=== PATIENT | male | born 1955 | race Caucasian/White ===

== ENCOUNTER 2016-12-17 11:58 | Inpatient (IN) | payer OTHER ==
[~2016-12-17] VITALS: Ht 185.4 cm; Wt 110.1 kg
[~2016-12-17 11:58] MED LIST: ALBU2.5V NEB; ALBU2.5V NPPB; ALLO100T30 PO; ASPI-650 PO; ATOR40TA PO; ATOR40TA78 PO; AZIT250T PO; CAPT12.52 PO; CEFT1FRO2 IVPB; DOCU-30 PO; FURO-92 PO; FURO-93 PO; FURO20TA3 PO; FURO40TA6 PO; HEPA5000 SQ; HYDR-3138 PO; INSU100C5 SQ-INSULIN; INSU100I29 SQ; INSU100V10 SQ; INSU100V5 SC; INSU100V8 SQ; LACT10SO5 PO; LACT20SO2 PO; LISI2.5T PO; LISI5TAB7 PO; METO25TA35 PO; METO25TA91 PO; MORP15TA PO; NAPR500T3 PO; OMEP-110 PO; ONDA4SOL2 IVPush; ONDA4TAB13 SL; OXYC10TA6 PO; OXYC1TAB7 PO; OXYC1TAB9 PO; OXYC5TAB3 PO; POTA10TA PO; POTA20TA91 PO; POTA25TA4 PO; PRED1TAB PO; PRED20TA PO; PRED50TA PO; PREG75CA PO; SOFO400T PO; SPIR25TA PO; TRIA1CAP3 PO; [UNRECOGNIZED DRUG - CODE] PO
[2016-12-17 13:32] LABS: ASPARTATE AMINO TRANSFERASE 11 U/L (15-37); BLOOD UREA NITROGEN 37 mg/dL (7-18)
[2016-12-17 13:37] LABS: IS PT STATUS REG ER OR PRE ER? YES
[2016-12-17] MEDS ORDERED: GUAIFENESIN/DM 200-20MG, 10ML UDC PO PRN (15:00)
[2016-12-17] MEDS ORDERED: ONDANSETRON ODT 4 MG PO PRN (15:00)
[2016-12-17] MEDS ORDERED: DEXTROSE 4 GM TAB.CHEW PO PRN (15:00)
[2016-12-17] MEDS ORDERED: ACETAMINOPHEN 325 MG TABLET PO PRN (15:00)
[2016-12-17] MEDS ORDERED: DEXTROSE 50%, 50ML SYRINGE IVPush PRN (15:00)
[2016-12-17] MEDS ORDERED: GLUCAGON 1 MG IM PRN (15:00)
[2016-12-17] MEDS ORDERED: ENALAPRILAT 1.25 MG/ML, 2ML IVPush PRN (15:00)
[2016-12-17] MEDS ORDERED: POLYETHYLENE GLYCOL 17 GM PACKET PO PRN (15:00)
[2016-12-17] MEDS ORDERED: ACETAMINOPHEN 325 MG TABLET ONE (15:13)
[2016-12-17] MEDS ORDERED: OXYC5CAP4 PO (15:18)
[2016-12-17] MEDS ORDERED: ALBUTEROL/IPRATROPIUM 2.5MG/0.5MG, 3 ML ONE (15:37)
[2016-12-17] MEDS: ALBUTEROL/IPRATROPIUM 2.5MG/0.5MG, 3 ML NPPB SCH (15:45)
[2016-12-17 15:50] LABS: IS PT STATUS REG ER OR PRE ER? YES
[2016-12-17] MEDS ORDERED: OXYcodone IR 5MG TABLET ONE (15:56)
[2016-12-17] MEDS: OXYcodone IR 5MG TABLET PO PRN (15:57)
[2016-12-17] MEDS ORDERED: INSULIN REGULAR 100 UNITS/ML, 3ML VIAL SQ-INSULIN SCH (16:00)
[2016-12-17] MEDS ORDERED: OXYcodone 5 MG/5 ML ORAL.SOL UDC PO PRN (16:00)
[2016-12-17] MEDS ORDERED: SACU1TAB PO ×2 (16:08→18:38)
[2016-12-17] MEDS ORDERED: FUROSEMIDE 40 MG TABLET PO ONE (16:30)
[2016-12-17] MEDS: INSULIN ASPART 100 UNITS/ML, PEN SQ-INSULIN SCH ×2 (18:03→21:29)
[2016-12-17] MEDS: HEPARIN 5,000 UNITS/ML, 1ML SQ SCH (18:04)
[2016-12-17 18:06] VITALS: BP 131/86
[2016-12-17 20:24] VITALS: BP 113/82
[2016-12-17] MEDS: ATORVASTATIN 40 MG TABLET PO SCH (21:28)
[2016-12-17] MEDS: METOPROLOL TARTRATE 25 MG TABLET PO SCH (21:29)
[2016-12-17] MEDS: SODIUM CHLORIDE FLUSH 10ML SYR IVF SCH (21:30)
[2016-12-17 22:45] LABS: IS PT STATUS REG ER OR PRE ER? NO
[2016-12-18] MEDS: morphine SULFATE 10 MG/ML, 1ML IVPush PRN ×4 (00:19→13:54)
[2016-12-18] MEDS: HEPARIN 5,000 UNITS/ML, 1ML SQ SCH ×4 (01:01→23:40)
[2016-12-18 02:29] VITALS: BP 118/81
[2016-12-18] MEDS: ASPIRIN 325 MG TABLET EC PO SCH (05:21)
[2016-12-18 06:06] LABS: HEMOGLOBIN 13.7 g/dL (13.7-18.0)
[2016-12-18 06:18] LABS: BLOOD UREA NITROGEN 35 mg/dL (7-18)
[2016-12-18] MEDS: ALBUTEROL/IPRATROPIUM 2.5MG/0.5MG, 3 ML NPPB SCH ×4 (06:35→20:05)
[2016-12-18 08:16] VITALS: BP 121/79
[2016-12-18] MEDS: SENNA/DOCUSATE TABLET PO SCH (09:00)
[2016-12-18] MEDS: VALSARTAN PO SCH (09:00)
[2016-12-18] MEDS: ALLOPURINOL 300 MG TABLET PO SCH (09:00)
[2016-12-18] MEDS: SACUBITRIL PO SCH (09:00)
[2016-12-18] MEDS: METOPROLOL TARTRATE 25 MG TABLET PO SCH ×2 (09:21→21:20)
[2016-12-18] MEDS: SODIUM CHLORIDE FLUSH 10ML SYR IVF SCH ×2 (09:21→21:00)
[2016-12-18] MEDS: FUROSEMIDE 40 MG TABLET PO SCH (09:21)
[2016-12-18] MEDS: INSULIN ASPART 100 UNITS/ML, PEN SQ-INSULIN SCH ×4 (09:26→21:19)
[2016-12-18 14:16] VITALS: BP 112/74
[2016-12-18 19:25] VITALS: BP 128/83
[2016-12-18] MEDS: ATORVASTATIN 40 MG TABLET PO SCH (21:20)
[2016-12-18] MEDS: OXYcodone IR 5MG TABLET PO PRN (23:38)
[2016-12-19 02:13] VITALS: BP 121/81
[2016-12-19] MEDS: OXYcodone IR 5MG TABLET PO PRN (06:01)
[2016-12-19] MEDS: ASPIRIN 325 MG TABLET EC PO SCH (06:01)
[2016-12-19 06:24] LABS: BLOOD UREA NITROGEN 40 mg/dL (7-18)
[2016-12-19] MEDS: ALBUTEROL/IPRATROPIUM 2.5MG/0.5MG, 3 ML NPPB SCH ×2 (06:45→11:05)
[2016-12-19 07:19] VITALS: BP 130/88
[2016-12-19] MEDS: ALLOPURINOL 300 MG TABLET PO SCH (08:08)
[2016-12-19] MEDS: FUROSEMIDE 40 MG TABLET PO SCH (08:09)
[2016-12-19] MEDS: METOPROLOL TARTRATE 25 MG TABLET PO SCH (08:09)
[2016-12-19] MEDS: HEPARIN 5,000 UNITS/ML, 1ML SQ SCH (08:09)
[2016-12-19] MEDS: INSULIN ASPART 100 UNITS/ML, PEN SQ-INSULIN SCH ×2 (08:10→12:20)
[2016-12-19] MEDS: SODIUM CHLORIDE FLUSH 10ML SYR IVF SCH (08:14)
[2016-12-19] MEDS: SENNA/DOCUSATE TABLET PO SCH (08:16)
[2016-12-19] MEDS: SACUBITRIL PO SCH (08:17)
[2016-12-19] MEDS: VALSARTAN PO SCH (08:17)
== END 2016-12-19 13:43 | disposition home or self-care (01) | DRG 291 ==
LOC: ED 13:50 → EDIP 14:23 → OBSVTOIN 14:23 → EDIP 14:23 → UNDOADMOB 14:23 → INTOOBSV 14:23 → 4WST 16:23 → DCLOUNGE 12-19 12:38
PROVIDERS: ADMIT Internal Medicine; ATTEND Internal Medicine
DX: I13.0 Hypertensive heart and chronic kidney disease with heart failure and stage 1 through stage 4 chronic kidney disease, or unspecified chronic kidney disease (principal); J18.9 Pneumonia, unspecified organism; I50.43 Acute on chronic combined systolic (congestive) and diastolic (congestive) heart failure; Z94.4 Liver transplant status; J44.0 Chronic obstructive pulmonary disease with (acute) lower respiratory infection; R07.9 Chest pain, unspecified; E11.65 Type 2 diabetes mellitus with hyperglycemia; K21.9 Gastro-esophageal reflux disease without esophagitis; I25.10 Atherosclerotic heart disease of native coronary artery without angina pectoris; I27.2 Other secondary pulmonary hypertension; N18.3 Chronic kidney disease, stage 3 (moderate); Z90.49 Acquired absence of other specified parts of digestive tract; Z88.8 Allergy status to other drugs, medicaments and biological substances; M1A.9XX1 Chronic gout, unspecified, with tophus (tophi); B19.20 Unspecified viral hepatitis C without hepatic coma; E78.5 Hyperlipidemia, unspecified; E11.51 Type 2 diabetes mellitus with diabetic peripheral angiopathy without gangrene; F17.210 Nicotine dependence, cigarettes, uncomplicated; G89.29 Other chronic pain; Z79.4 Long term (current) use of insulin; Z95.810 Presence of automatic (implantable) cardiac defibrillator; I25.2 Old myocardial infarction
CPT/HCPCS: 36415; 71020; 80048; 80053; 82962; 83880; 84484; 85025; 93005; 93970; 94640; 99285; J1644; J1815; J7620; J2270

== ENCOUNTER 2016-12-31 15:55 | Inpatient (IN) | payer OTHER ==
[~2016-12-31] VITALS: Ht 185.4 cm; Wt 105.7 kg
[~2016-12-31 15:55] MED LIST changes: +OXYC5CAP4 PO; +SACU1TAB PO
[2016-12-31] MEDS ORDERED: ASPIRIN 81 MG TABLET CHEW ONE (16:24)
[2016-12-31] MEDS: ASPIRIN 81 MG TABLET CHEW PO ONE ×2 (16:26→16:27)
[2016-12-31 16:51] LABS: HEMOGLOBIN 13.6 g/dL (13.7-18.0)
[2016-12-31 17:02] LABS: ASPARTATE AMINO TRANSFERASE 13 U/L (15-37); BLOOD UREA NITROGEN 34 mg/dL (7-18)
[2016-12-31 17:07] LABS: IS PT STATUS REG ER OR PRE ER? YES
[2016-12-31] MEDS ORDERED: NITROGLYCERIN SINGLE TAB 0.4 MG SL ONE ×2 (17:22→17:36)
[2016-12-31] MEDS: NITROGLYCERIN SINGLE TAB 0.4 MG SL PRN ×3 (17:25→17:37)
[2016-12-31] MEDS ORDERED: ONDANSETRON 2MG/ML, 2ML ONE (17:54)
[2016-12-31] MEDS ORDERED: MORPHINE SULFATE 4 MG/ML, 1ML ONE ×2 (17:54→20:54)
[2016-12-31] MEDS: MORPHINE SULFATE 4 MG/ML, 1ML IVPush PRN ×2 (17:57→21:43)
[2016-12-31] MEDS ORDERED: ONDANSETRON 2MG/ML, 2ML IVPush ONE (18:00)
[2016-12-31] MEDS ORDERED: LIDOCAINE 1%, 20ML ONE (18:08)
[2016-12-31] MEDS ORDERED: BUPIVACAINE 0.25% ONE (18:08)
[2016-12-31] MEDS ORDERED: SODIUM CHLORIDE FLUSH 10ML SYR IVF PRN (19:00)
[2016-12-31] MEDS ORDERED: ENALAPRILAT 1.25 MG/ML, 2ML IVPush PRN (20:00)
[2016-12-31] MEDS ORDERED: ONDANSETRON ODT 4 MG PO PRN (20:00)
[2016-12-31] MEDS ORDERED: DEXTROSE 4 GM TAB.CHEW PO PRN (20:00)
[2016-12-31] MEDS ORDERED: NITROGLYCERIN 0.4 MG BOTTLE (25 TABS) SL PRN (20:00)
[2016-12-31] MEDS ORDERED: POLYETHYLENE GLYCOL 17 GM PACKET PO PRN (20:00)
[2016-12-31] MEDS ORDERED: GLUCAGON 1 MG IM PRN (20:00)
[2016-12-31] MEDS ORDERED: DEXTROSE 50%, 50ML SYRINGE IVPush PRN (20:00)
[2016-12-31] MEDS ORDERED: METOPROLOL TARTRATE 50 MG TABLET ONE (20:13)
[2016-12-31] MEDS ORDERED: FUROSEMIDE 40 MG/4 ML ONE (20:13)
[2016-12-31] MEDS ORDERED: HEPARIN 5,000 UNITS/ML, 1ML ONE (20:13)
[2016-12-31] MEDS ORDERED: NICOTINE 14MG/24 HR PATCH.TD24 ONE (20:13)
[2016-12-31] MEDS: FUROSEMIDE 40 MG/4 ML IV SCH (20:42)
[2016-12-31] MEDS: NICOTINE 14MG/24 HR PATCH.TD24 TD SCH (20:42)
[2016-12-31] MEDS: HEPARIN 5,000 UNITS/ML, 1ML SQ SCH (20:42)
[2016-12-31] MEDS: SODIUM CHLORIDE FLUSH 10ML SYR IVF SCH (20:43)
[2016-12-31] MEDS ORDERED: INSULIN SINGLE DOSE, ER SQ-INSULIN ONE (20:57)
[2016-12-31] MEDS: ATORVASTATIN 40 MG TABLET PO SCH (21:42)
[2016-12-31] MEDS: METOPROLOL TARTRATE 25 MG TABLET PO SCH (21:43)
[2016-12-31] MEDS: INSULIN REGULAR 100 UNITS/ML, 3ML VIAL SQ-INSULIN SCH (21:43)
[2016-12-31 22:44] VITALS: BP 107/74
[2016-12-31 23:09] LABS: IS PT STATUS REG ER OR PRE ER? NO
[2016-12-31 23:49] VITALS: BP 105/70
[2017-01-01] MEDS: OXYcodone IR 5MG TABLET PO PRN ×3 (01:01→16:12)
[2017-01-01] MEDS: morphine SULFATE 10 MG/ML, 1ML IVPush PRN ×3 (02:30→12:05)
[2017-01-01 02:52] VITALS: BP 117/84
[2017-01-01] MEDS: HEPARIN 5,000 UNITS/ML, 1ML SQ SCH ×3 (04:52→20:44)
[2017-01-01 05:30] LABS: HEMOGLOBIN 13.1 g/dL (13.7-18.0)
[2017-01-01 06:03] LABS: BLOOD UREA NITROGEN 34 mg/dL (7-18)
[2017-01-01] MEDS: INSULIN REGULAR 100 UNITS/ML, 3ML VIAL SQ-INSULIN SCH ×4 (07:00→20:45)
[2017-01-01 07:03] VITALS: BP 105/73
[2017-01-01] MEDS: FUROSEMIDE 40 MG/4 ML IV SCH (08:08)
[2017-01-01] MEDS: ALLOPURINOL 300 MG TABLET PO SCH (08:08)
[2017-01-01] MEDS: METOPROLOL TARTRATE 25 MG TABLET PO SCH ×2 (08:08→20:45)
[2017-01-01] MEDS: VALSARTAN HOMEMEDPO SCH (08:09)
[2017-01-01] MEDS: SENNA/DOCUSATE TABLET PO SCH (08:09)
[2017-01-01] MEDS: SACUBITRIL HOMEMEDPO SCH (08:09)
[2017-01-01] MEDS: ASPIRIN 325 MG TABLET EC PO SCH (08:09)
[2017-01-01] MEDS: SODIUM CHLORIDE FLUSH 10ML SYR IVF SCH ×2 (08:09→20:44)
[2017-01-01 12:52] VITALS: BP 108/74
[2017-01-01 16:53] VITALS: BP 108/75
[2017-01-01] MEDS ORDERED: MORPHINE SULFATE 4 MG/ML, 1ML IVPush ONE (18:30)
[2017-01-01] MEDS: NICOTINE 14MG/24 HR PATCH.TD24 TD SCH (20:00)
[2017-01-01 20:06] VITALS: BP 112/73
[2017-01-01] MEDS: ATORVASTATIN 40 MG TABLET PO SCH (20:44)
[2017-01-01] MEDS ORDERED: OXYcodone IR 5MG TABLET PO PRN (21:00)
[2017-01-02 00:39] VITALS: BP 106/74
[2017-01-02] MEDS: HEPARIN 5,000 UNITS/ML, 1ML SQ SCH ×2 (03:41→12:00)
[2017-01-02] MEDS: ASPIRIN 325 MG TABLET EC PO SCH (06:03)
[2017-01-02 07:42] VITALS: BP 115/79
[2017-01-02] MEDS: SACUBITRIL HOMEMEDPO SCH (08:55)
[2017-01-02] MEDS: VALSARTAN HOMEMEDPO SCH (08:55)
[2017-01-02] MEDS: SENNA/DOCUSATE TABLET PO SCH (09:00)
[2017-01-02] MEDS: METOPROLOL TARTRATE 25 MG TABLET PO SCH (09:05)
[2017-01-02] MEDS: ALLOPURINOL 300 MG TABLET PO SCH (09:05)
[2017-01-02] MEDS: SODIUM CHLORIDE FLUSH 10ML SYR IVF SCH (09:05)
[2017-01-02] MEDS: INSULIN REGULAR 100 UNITS/ML, 3ML VIAL SQ-INSULIN SCH ×2 (09:06→12:31)
[2017-01-03] MEDS ORDERED: FUROSEMIDE 40 MG/4 ML IV SCH (09:00)
== END 2017-01-02 14:42 | disposition home or self-care (01) | DRG 291 ==
LOC: ED 18:37 → EDIP 18:59 → 5SO 22:31 → 4EST 01-01 16:41 → DCLOUNGE 01-02 14:09
PROVIDERS: ADMIT Family Medicine; ATTEND Family Medicine
DX: I13.0 Hypertensive heart and chronic kidney disease with heart failure and stage 1 through stage 4 chronic kidney disease, or unspecified chronic kidney disease (principal); I50.23 Acute on chronic systolic (congestive) heart failure; J44.0 Chronic obstructive pulmonary disease with (acute) lower respiratory infection; Z94.4 Liver transplant status; I25.110 Atherosclerotic heart disease of native coronary artery with unstable angina pectoris; E11.22 Type 2 diabetes mellitus with diabetic chronic kidney disease; E78.5 Hyperlipidemia, unspecified; I73.9 Peripheral vascular disease, unspecified; K21.9 Gastro-esophageal reflux disease without esophagitis; N18.3 Chronic kidney disease, stage 3 (moderate); M1A.9XX1 Chronic gout, unspecified, with tophus (tophi); M19.90 Unspecified osteoarthritis, unspecified site; K72.90 Hepatic failure, unspecified without coma; B19.20 Unspecified viral hepatitis C without hepatic coma; E11.65 Type 2 diabetes mellitus with hyperglycemia; K59.00 Constipation, unspecified; F17.210 Nicotine dependence, cigarettes, uncomplicated; Z79.4 Long term (current) use of insulin; Z79.82 Long term (current) use of aspirin; Z95.810 Presence of automatic (implantable) cardiac defibrillator; I25.2 Old myocardial infarction; Z90.49 Acquired absence of other specified parts of digestive tract; Z88.8 Allergy status to other drugs, medicaments and biological substances
CPT/HCPCS: 36415; 71010; 80048; 80053; 82962; 83036; 83880; 84484; 85025; 93005; 96374; 96375; 96376; J1644; J1815; J1940; J2405; J2270

== ENCOUNTER 2017-03-22 08:19 | Emergency (ER) | payer OTHER ==
[~2017-03-22] VITALS: Ht 185.4 cm; Wt 115.8 kg
[~2017-03-22 08:19] MED LIST changes: +LACT20SO13 PO; -LACT20SO2 PO
[2017-03-22 08:23] VITALS: BP 146/89
[2017-03-22] MEDS ORDERED: ASPIRIN 81 MG TABLET CHEW PO ONE (09:00)
== END 2017-03-22 09:50 | disposition left against medical advice (07) ==
LOC: ED 09:44
DX: R07.89 Other chest pain (principal); J44.9 Chronic obstructive pulmonary disease, unspecified; I10 Essential (primary) hypertension; E11.9 Type 2 diabetes mellitus without complications; Z79.82 Long term (current) use of aspirin
CPT/HCPCS: 71020; 93005; 99284

== ENCOUNTER 2017-04-02 09:11 | Inpatient (IN) | payer OTHER ==
[~2017-04-02] VITALS: Ht 185.4 cm; Wt 116.3 kg
[2017-04-02] MEDS ORDERED: MORPHINE SULFATE 4 MG/ML, 1ML ONE ×3 (09:38→13:05)
[2017-04-02] MEDS ORDERED: ALBUTEROL SULFATE 2.5 MG/3 ML NPPB ONE (09:40)
[2017-04-02] MEDS: MORPHINE SULFATE 4 MG/ML, 1ML IVPush PRN ×2 (09:40→10:04)
[2017-04-02] MEDS ORDERED: ALBUTEROL SULFATE 2.5 MG/3 ML ONE (09:48)
[2017-04-02] MEDS ORDERED: SODIUM CHLORIDE FLUSH 10ML SYR IVF ONE (10:00)
[2017-04-02 10:12] LABS: BLOOD UREA NITROGEN 25 mg/dL (7-18)
[2017-04-02 10:21] LABS: IS PT STATUS REG ER OR PRE ER? YES
[2017-04-02] MEDS ORDERED: OMNIPAQUE 350 MG/ML, 100ML BOTTLE ONE (12:53)
[2017-04-02] MEDS ORDERED: MORPHINE SULFATE 4 MG/ML, 1ML IVPush PRN (13:00)
[2017-04-02] MEDS ORDERED: FUROSEMIDE 40 MG/4 ML IVPush ONE (13:30)
[2017-04-02] MEDS ORDERED: FUROSEMIDE 40 MG/4 ML ONE (13:48)
[2017-04-02 14:34] VITALS: BP 146/86
[2017-04-02] MEDS: OXYcodone/APAP 10/325MG TABLET PO PRN (15:56)
[2017-04-02] MEDS: SACUBITRIL/VALSARTAN 24MG-26MG TAB PO SCH (16:00)
[2017-04-02] MEDS ORDERED: FUROSEMIDE 40 MG/4 ML IVPush SCH (16:00)
[2017-04-02] MEDS: INSULIN ASPART 100 UNITS/ML, PEN SQ-INSULIN SCH ×2 (17:11→21:10)
[2017-04-02 18:55] VITALS: BP 134/90
[2017-04-02 20:58] LABS: IS PT STATUS REG ER OR PRE ER? NO
[2017-04-02] MEDS ORDERED: OXYcodone IR 5MG TABLET PO SCH (21:00)
[2017-04-02 21:06] VITALS: BP 121/77
[2017-04-02] MEDS: ATORVASTATIN 40 MG TABLET PO SCH (21:09)
[2017-04-02] MEDS: METOPROLOL TARTRATE 25 MG TABLET PO SCH (21:09)
[2017-04-03 01:36] VITALS: BP 113/72
[2017-04-03] MEDS: OXYcodone/APAP 10/325MG TABLET PO PRN (04:52)
[2017-04-03 06:07] LABS: BLOOD UREA NITROGEN 33 mg/dL (7-18)
[2017-04-03] MEDS ORDERED: IBUPROFEN 200 MG TABLET PO PRN (06:30)
[2017-04-03] MEDS ORDERED: ONDANSETRON ODT 4 MG PO PRN (07:30)
[2017-04-03 08:49] VITALS: BP 101/66
[2017-04-03] MEDS ORDERED: FUROSEMIDE 20 MG/2 ML IVPush SCH (09:00)
[2017-04-03] MEDS ORDERED: SACUBITRIL/VALSARTAN 24MG-26MG TAB PO SCH (09:00)
[2017-04-03] MEDS: SACUBITRIL/VALSARTAN 24MG-26MG TAB PO SCH (09:00)
[2017-04-03] MEDS: ALLOPURINOL 300 MG TABLET PO SCH (09:16)
[2017-04-03] MEDS: METOPROLOL TARTRATE 25 MG TABLET PO SCH ×2 (09:16→20:11)
[2017-04-03] MEDS: INSULIN ASPART 100 UNITS/ML, PEN SQ-INSULIN SCH ×4 (11:43→20:16)
[2017-04-03] MEDS ORDERED: FUROSEMIDE 40 MG/4 ML IV SCH (13:30)
[2017-04-03 13:35] VITALS: BP 112/76
[2017-04-03 20:07] VITALS: BP 110/75
[2017-04-03] MEDS: ATORVASTATIN 40 MG TABLET PO SCH (20:11)
[2017-04-04 01:26] VITALS: BP 101/66
[2017-04-04] MEDS: OXYcodone/APAP 10/325MG TABLET PO PRN ×2 (01:30→20:11)
[2017-04-04 05:54] LABS: BLOOD UREA NITROGEN 42 mg/dL (7-18)
[2017-04-04] MEDS ORDERED: SODIUM CHLORIDE 0.9%, 500ML IVBOLUS ONE (07:00)
[2017-04-04] MEDS ORDERED: ALBUTEROL SULFATE 2.5 MG/3 ML ONE (07:54)
[2017-04-04] MEDS ORDERED: ALBUTEROL/IPRATROPIUM 2.5MG/0.5MG, 3 ML ONE (07:55)
[2017-04-04] MEDS ORDERED: ALBUTEROL/IPRATROPIUM 2.5MG/0.5MG, 3 ML NPPB PRN (08:30)
[2017-04-04] MEDS: SODIUM CHLORIDE 0.9% 1,000 ML IV SCH (08:34)
[2017-04-04] MEDS: ALLOPURINOL 300 MG TABLET PO SCH (08:34)
[2017-04-04] MEDS: METOPROLOL TARTRATE 25 MG TABLET PO SCH ×2 (08:35→20:13)
[2017-04-04] MEDS: SACUBITRIL/VALSARTAN 24MG-26MG TAB PO SCH (08:35)
[2017-04-04] MEDS: INSULIN ASPART 100 UNITS/ML, PEN SQ-INSULIN SCH ×4 (08:39→20:07)
[2017-04-04] MEDS: ALBUTEROL/IPRATROPIUM 2.5MG/0.5MG, 3 ML NPPB SCH ×4 (10:00→22:51)
[2017-04-04] MEDS ORDERED: LIDOCAINE 1%, 20ML ONE (10:15)
[2017-04-04 11:32] VITALS: BP 105/69
[2017-04-04 14:24] VITALS: BP 114/73
[2017-04-04 20:02] VITALS: BP 127/77
[2017-04-04] MEDS: ATORVASTATIN 40 MG TABLET PO SCH (20:12)
[2017-04-05] MEDS: SODIUM CHLORIDE 0.9% 1,000 ML IV SCH ×2 (01:15→14:10)
[2017-04-05 01:56] VITALS: BP 113/78
[2017-04-05 05:34] LABS: BLOOD UREA NITROGEN 44 mg/dL (7-18)
[2017-04-05] MEDS: ALBUTEROL/IPRATROPIUM 2.5MG/0.5MG, 3 ML NPPB SCH ×5 (07:00→22:00)
[2017-04-05] MEDS: INSULIN ASPART 100 UNITS/ML, PEN SQ-INSULIN SCH ×4 (07:00→19:55)
[2017-04-05 07:16] VITALS: BP 120/76
[2017-04-05] MEDS: SACUBITRIL/VALSARTAN 24MG-26MG TAB PO SCH (07:57)
[2017-04-05] MEDS: METOPROLOL TARTRATE 25 MG TABLET PO SCH ×2 (07:57→19:55)
[2017-04-05] MEDS: OXYcodone/APAP 10/325MG TABLET PO PRN ×3 (08:07→19:55)
[2017-04-05] MEDS ORDERED: DOCUSATE 100 MG CAPSULE ONE (10:41)
[2017-04-05] MEDS ORDERED: POLYETHYLENE GLYCOL 17 GM PACKET ONE (10:41)
[2017-04-05] MEDS ORDERED: POLYETHYLENE GLYCOL 17 GM PACKET NG ONE (11:00)
[2017-04-05] MEDS ORDERED: DOCUSATE 100 MG CAPSULE PO PRN (11:00)
[2017-04-05 13:55] VITALS: BP 133/85
[2017-04-05 19:36] VITALS: BP 125/78
[2017-04-05] MEDS: ATORVASTATIN 40 MG TABLET PO SCH (19:55)
[2017-04-06 01:32] VITALS: BP 131/78
[2017-04-06 05:05] LABS: BLOOD UREA NITROGEN 43 mg/dL (7-18)
[2017-04-06] MEDS: SODIUM CHLORIDE 0.9% 1,000 ML IV SCH (05:19)
[2017-04-06] MEDS: ALBUTEROL/IPRATROPIUM 2.5MG/0.5MG, 3 ML NPPB SCH ×3 (07:00→15:00)
[2017-04-06] MEDS: INSULIN ASPART 100 UNITS/ML, PEN SQ-INSULIN SCH ×2 (07:16→10:59)
[2017-04-06 07:23] VITALS: BP 128/80
[2017-04-06] MEDS ORDERED: ALBUTEROL SULFATE 2.5MG/0.5ML NPPB SCH (07:30)
[2017-04-06] MEDS: METOPROLOL TARTRATE 25 MG TABLET PO SCH (08:27)
[2017-04-06] MEDS: SACUBITRIL/VALSARTAN 24MG-26MG TAB PO SCH (08:27)
[2017-04-06] MEDS ORDERED: METO25TA9 PO (12:32)
[2017-04-06 13:06] VITALS: BP 133/76
[2017-04-06] MEDS: OXYcodone/APAP 10/325MG TABLET PO PRN (16:13)
== END 2017-04-06 16:50 | disposition hospice, home (50) | DRG 190 ==
LOC: ED 09:17 → EDIP 13:35 → 5SO 14:20
PROVIDERS: ADMIT Family Medicine; ATTEND Family Medicine
PROC: 0W993ZZ Drainage of Right Pleural Cavity, Percutaneous Approach (ICD-10-PCS; principal; 2017-04-04)
DX: J44.1 Chronic obstructive pulmonary disease with (acute) exacerbation (principal); I50.23 Acute on chronic systolic (congestive) heart failure; J90 Pleural effusion, not elsewhere classified; Z94.4 Liver transplant status; I42.0 Dilated cardiomyopathy; I11.0 Hypertensive heart disease with heart failure; L89.629 Pressure ulcer of left heel, unspecified stage; E11.21 Type 2 diabetes mellitus with diabetic nephropathy; E66.9 Obesity, unspecified; F17.210 Nicotine dependence, cigarettes, uncomplicated; F41.9 Anxiety disorder, unspecified; M19.90 Unspecified osteoarthritis, unspecified site; I25.10 Atherosclerotic heart disease of native coronary artery without angina pectoris; E11.51 Type 2 diabetes mellitus with diabetic peripheral angiopathy without gangrene; K21.9 Gastro-esophageal reflux disease without esophagitis; M1A.9XX1 Chronic gout, unspecified, with tophus (tophi); I25.2 Old myocardial infarction; Z91.14 Patient's other noncompliance with medication regimen; Z95.810 Presence of automatic (implantable) cardiac defibrillator; Z99.81 Dependence on supplemental oxygen; Z90.49 Acquired absence of other specified parts of digestive tract; Z79.899 Other long term (current) drug therapy
CPT/HCPCS: 32555; 36415; 71010; 71275; 80048; 80076; 82040; 82962; 83036; 83615; 83880; 84443; 84484; 84550; 85025; 85379; 93005; 94640; 96374; 96375; 96376; J1815; J1940; J3490; J7613; J7620; Q9967; J7030; J7040; J7512

== ENCOUNTER 2017-04-19 20:49 | Emergency (ER) | payer OTHER ==
[~2017-04-19] VITALS: Ht 185.4 cm; Wt 103.3 kg
[~2017-04-19 20:49] MED LIST changes: +METO25TA9 PO
[2017-04-19 21:02] VITALS: BP 151/97
== END 2017-04-19 21:44 | disposition left against medical advice (07) ==
LOC: ED 21:38
DX: R07.9 Chest pain, unspecified (principal); Z53.21 Procedure and treatment not carried out due to patient leaving prior to being seen by health care provider
CPT/HCPCS: 93005